=== PATIENT | female | born 1980 | race African-American/Black ===

== ENCOUNTER 2016-05-05 22:51 | Emergency (ER) | payer OTHER ==
[~2016-05-05] VITALS: Ht 154.9 cm; Wt 91.6 kg
[2016-05-05 23:17] VITALS: BP 125/85
--- NOTE | 2016-05-05 23:37 | ED INFLUENZA/URI COMPLAINT ---
History of Present Illness General Chief Complaint: Upper Respiratory Sx/Fever Stated Complaint: LARYNGITIS,CHEST CONGESTION,TIGHTNESS Source: patient Exam Limitations: no limitations Vital Signs & Intake/Output Vital Signs & Intake/Output Vital Signs Date Time Temp Pulse Resp B/P Pulse O2 O2 Flow FiO2 Ox Delivery Rate 05/05 2352 96 Room Air 05/05 2317 98.0 65 18 125/85 98 Room Air ED Intake and Output 05/06 0000 05/05 1200 Intake Total Output Total Balance Patient 202 lb Weight Allergies Coded Allergies: meperidine (From DEMEROL) (05/05/16) tramadol (05/05/16) Uncoded Allergies: VIT B (05/05/16) Reconcile Medications Methylprednisolone. (Medrol) 4 MG TAB.DS.PK 1 DP PO AD INFLAMMATION Triage Note: LARYNGITIS,CHEST CONGESTION/TIGHTNESS,NO COUGH Triage Nurses Notes Reviewed? yes : No Patient currently breastfeeds: No HPI: Patient is a 35-year-old female presents complaining of voice hoarseness, chest congestion/tightness, ear pain. Symptoms x 2-3 days. Pain is moderate. Patient recently drove from [place], stopped [address] Associated myalgias. Minimal cough. Denies fevers, chills. (TONY MCKEON) Past History Travel History Traveled to [place] past 21 day No Medical History Any Pertinent Medical History? see below for history Neurological: MIGRAINES EENT: NONE Cardiovascular: NONE Respiratory: asthma Gastrointestinal: NONE Hepatic: NONE Renal: NONE Musculoskeletal: NONE Psychiatric: NONE Endocrine: NONE Blood Disorders: NONE Cancer(s): NONE Surgical History Surgical History: appendectomy, tubal ligation, tonsillectomy Psychosocial History What is your primary language German Tobacco Use: Never used Family History Hx Contributory? No (TONY MCKEON) Review of Systems Review of Systems Constitutional: Denies: chills, fever. EENTM: Reports: see HPI. Respiratory: Reports: short of breath. Denies: cough. Cardiovascular: Reports: chest pain. GI: Reports: no symptoms. Genitourinary: Reports: no symptoms. Musculoskeletal: Reports: muscle pain. Skin: Reports: no symptoms. Neurological/Psychological: Reports: no symptoms. Hematologic/Endocrine: Reports: no symptoms. Immunologic/Allergic: Reports: lymphadenopathy (left anterior cervical). (TONY MCKEON) Physical Exam Physical Exam General Appearance: alert, awake Head: atraumatic, normal appearance Eyes: Bilateral: normal appearance, PERRL, EOMI. Ears, Nose, Throat: voice hoarse, clear fluid posterior to tympanic membranes bilaterally, mild pharyngeal erythema. Neck: normal inspection, supple, full range of motion, left anterior cervical lymphadenopathy Respiratory: normal breath sounds, chest non-tender, no respiratory distress, lungs clear Cardiovascular: regular rate/rhythm (no murmur) Back: normal inspection, normal range of motion Extremities: normal inspection, normal capillary refill, normal range of motion, no edema Neurologic/Psych: no motor/sensory deficits, awake, alert, oriented x 3, normal gait, normal mood/affect Skin: intact, normal color, warm/dry Lymphatic: adenopathy (left anterior cervical) Core Measures Severe Sepsis Present: No Septic Shock Present: No (TONY MCKEON) Progress Differential Diagnosis: influenza, otitis, pneumonia, pharyngitis, sinusitis Plan of Care: Orders Procedure Date/time Status XRY-CHEST XRAY, PA AND LATERAL 05/05 2344 Active PERC score negative, low risk wells criteria, PE ruled out. 05/06/2016 12:33:14 AM: Results of x-ray discussed with patient. Patient nontoxic appearing, appears stable for discharge. (TONY MCKEON) Diagnostic Imaging: Viewed by Me: Radiology Read. Discussed w/RAD: Radiology Read. Radiology Impression: PATIENT: CYNTHIA WILSON PRESENT AGE: 35 PATIENT ACCOUNT NO: [id number] : 79 LOCATION: [facility] ORDERING PHYSICIAN: TONY WOOTEN SERVICE DATE: 05/05/16 EXAM TYPE: RAD - XRY-CHEST XRAY, PA AND LATERAL EXAMINATION: CHEST 2 VIEWS CLINICAL INFORMATION: Dyspnea, chest discomfort. COMPARISON: None. TECHNIQUE: PA and lateral views of the chest were obtained. FINDINGS: The cardiac silhouette is not enlarged. The mediastinal and hilar contours are unremarkable. There are neither pleural effusions nor pneumothoraces. There are no consolidations. The osseous structures are unremarkable. IMPRESSION: No evidence for acute disease. DICTATED BY: FILIBERTO CARRASQUILLO MD DATE/TIME DICTATED:05/06/169 TECHNICAL SUPPORT [employer]IP:[place] DATE/TIME TRANSCRIBED:05/06/169 CONFIDENTIAL, DO NOT COPY WITHOUT APPROPRIATE AUTHORIZATION. <Electronically signed in Other Vendor System> SIGNED BY: FILIBERTO CARRASQUILLO MD 05/06/1614 Initial ED EKG: none (TONY MCKEON) Departure Departure Time of Disposition: 28 Disposition: HOME OR SELF CARE Condition: Stable Clinical Impression Primary Impression: Laryngitis Secondary Impressions: Viral upper respiratory illness Referrals: UNKNOWN (PCP/Family) Additional Instructions: Drink plenty fluids and rest. Follow-up with your primary care provider if no improvement within 4-5 days. Return to the emergency department if difficulty breathing or worsening symptoms. Departure Forms: Customer Survey General Discharge Information Prescriptions: Current Visit Scripts Methylprednisolone. (Medrol) 1 DP PO AD #1 DP (TONY MCKEON) PA/[employer] TECHNICIAN Co-Sign Statement Statement: ED Attending supervision documentation- [] I saw and evaluated the patient. I have also reviewed all the pertinent lab results and diagnostic results. I agree with the findings and the plan of care as documented in the PA's/[employer] TECHNICIAN's documentation. [x] I have reviewed the ED Record and agree with the PA's/[employer] TECHNICIAN's documentation. [] Additions or exceptions (if any) to the PAs/[employer] TECHNICIAN's note and plan are summarized below: [] (OWEN GARCIA,RODERICK)
--- NOTE | 2016-05-06 00:15 | RADIOLOGY REPORT ---
EXAMINATION: CHEST 2 VIEWS CLINICAL INFORMATION: Dyspnea, chest discomfort. COMPARISON: None. TECHNIQUE: PA and lateral views of the chest were obtained. FINDINGS: The cardiac silhouette is not enlarged. The mediastinal and hilar contours are unremarkable. There are neither pleural effusions nor pneumothoraces. There are no consolidations. The osseous structures are unremarkable. IMPRESSION: No evidence for acute disease.
[2016-05-06] MEDS ORDERED: MEDROL4 M2 PO (00:30)
== END 2016-05-06 00:42 ==
LOC: ERH 22:51
DX: J04.0 Acute laryngitis (principal); J06.9 Acute upper respiratory infection, unspecified